=== PATIENT | male | born 1960 | race Caucasian/White ===

== ENCOUNTER 2017-06-19 17:38 | Inpatient (IN) | payer BC, OTHER ==
[~2017-06-19 17:38] MED LIST: ISOVUE-370 76%-LOCM 1 ML ONE
[2017-06-19 18:09] LABS: #Eosinphils 0.1 thou/uL (0.0-0.7); #Lymphocytes 2.7 thou/uL (1.20-3.40); #Monocytes 0.8 thou/uL (0.11-0.59); %Basophils 0.4 % (0.0-1.0); %Eosinophils 1.3 % (0.0-10.0); %Lymphocytes 25.3 % (21.0-51.0); %Monocytes 7.5 % (0.0-10.0); %Neutrophils 65.5 % (42.0-75.0); Hemoglobin 15.7 g/dL (14.0-18.0); Mean Corpuscular HGB CONC 36.3 g/dL (32.0-36.0); Mean Corpuscular Hemoglobin 32.9 pg (27.0-31.0); Mean Corpuscular Volume 90.7 fl (80.0-94.0); Mean Platelet Volume 8.4 fL (7.4-10.4); Platelet Count 218 thou/uL (130-400); RBC Distribution Width 12.3 % (11.5-14.5); Red Blood Cell (RBC) Count 4.77 mill/uL (4.70-6.10); White Blood Cell (WBC) Count 10.7 thou/uL (4.8-10.8)
[2017-06-19 18:16] LABS: PTT 24.8 SEC (22.9-36.1); Prothrombin Time 13.2 SEC (12.0-14.7)
[2017-06-19 18:23] LABS: ALT (SGPT) 41 U/L (8-55); AST (SGOT) 46 U/L (5-34); Albumin 4.3 g/dL (3.5-5.0); Alcohol Less than 10 mg/dL (Less than 10); Alkaline Phosphatase 55 U/L (40-150); Anion Gap 15 mmol/L (10-20); BUN (Urea Nitrogen) 17 mg/dL (8.4-25.7); Bilirubin, Total 0.8 mg/dL (0.2-1.2); Calc. Creatinine Clearance 0 mL/min (70-130); Calcium 9.1 mg/dL (7.8-10.44); Carbon Dioxide 21 mmol/L (22-29); Chloride 104 mmol/L (98-107); Estimated GFR-MDRD 78; Globulin 2.9 g/dL (2.4-3.5); Glucose 117 mg/dL (70-105); Lipase 45 U/L (8-78); Potassium 3.7 mmol/L (3.5-5.1); Protein, Total 7.2 g/dL (6.0-8.3); Sodium 136 mmol/L (136-145)
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
[2017-06-19] MEDS ORDERED: Adacel (T-DAP) 0.5 ML VIAL ONE (19:05)
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
[2017-06-19 20:48] LABS: Bilirubin Negative (Negative); Blood, Urine Small (Negative); Clarity CLEAR (Clear); Glucose, Urine (Dipstick) Negative (Negative); Leukocyte Negative (Negative); Nitrite Negative (Negative); Protein, Urine (Dipstick) Trace mg/dL (Neg-Trace); Specific Gravity, Urine 1.034 (1.002-1.036); Urobilinogen 0.2 mg/dL (0.2-1.0)
[2017-06-19 20:50] LABS: Bacteria/HPF None Seen HPF (None Seen); Hyaline Casts/LPF 4-6 HYALINE CAST LPF (0-3 Hyaline); Pathc Cast-AUWi Flag 0.81 (0-2.49); Squamous Epithelial 0-3 HPF (0-3); WBC/HPF 0-3 HPF (0-3)
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
[2017-06-19] MEDS ORDERED: Ondansetron HCl/PF 4 MG/2 ML Vial ONE (22:15)
[2017-06-19] MEDS ORDERED: Dextrose 50% Abboject 50 ML SYRINGE SLOW IVP PRN (22:58)
[2017-06-19] MEDS ORDERED: Dextrose 5% in Water 1,000 ML IV PRN (22:58)
[2017-06-19] MEDS ORDERED: hydrALAZINE 20 MG/ML VIAL SLOW IVP PRN (22:58)
[2017-06-19] MEDS ORDERED: Rib Fracture Protocol IV SCH (22:58)
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
[2017-06-19 23:26] LABS: Hemoglobin 13.9 g/dL (14.0-18.0)
[2017-06-19] MEDS: Sodium Bicarbonate 100 MEQ in Dextrose 5% in Water 1,000 ML IV SCH ×2 (23:51)
[2017-06-19] MEDS: Acetaminophen 1,000 MG in Premix Bag 1 BAG IVPB SCH (23:51)
[2017-06-19] MEDS: Ketorolac Tromethamine 30 MG/ML VIAL IVP SCH (23:51)
[2017-06-20 02:17] VITALS: BMI 28.8
[2017-06-20 04:44] LABS: #Lymphocytes 0.9 thou/uL (1.20-3.40); #Monocytes 0.6 thou/uL (0.11-0.59); #Neutrophils 7.8 thou/uL (1.40-6.50); %Basophils 0.2 % (0.0-1.0); %Eosinophils 0.3 % (0.0-10.0); %Lymphocytes 9.4 % (21.0-51.0); %Monocytes 6.1 % (0.0-10.0); %Neutrophils 84.1 % (42.0-75.0); Hemoglobin 12.7 g/dL (14.0-18.0); Mean Corpuscular HGB CONC 35.2 g/dL (32.0-36.0); Mean Corpuscular Hemoglobin 31.7 pg (27.0-31.0); Mean Corpuscular Volume 90.3 fl (80.0-94.0); Platelet Count 179 thou/uL (130-400); Red Blood Cell (RBC) Count 4.01 mill/uL (4.70-6.10); White Blood Cell (WBC) Count 9.2 thou/uL (4.8-10.8)
[2017-06-20 04:49] LABS: Anion Gap 12 mmol/L (10-20); BUN (Urea Nitrogen) 12 mg/dL (8.4-25.7); Calc. Creatinine Clearance 111 mL/min (70-130); Calcium 7.9 mg/dL (7.8-10.44); Carbon Dioxide 25 mmol/L (22-29); Chloride 102 mmol/L (98-107); Estimated GFR-MDRD 85; Glucose 189 mg/dL (70-105); Potassium 4.2 mmol/L (3.5-5.1); Sodium 135 mmol/L (136-145)
[2017-06-20] MEDS: Acetaminophen 1,000 MG in Premix Bag 1 BAG IVPB SCH (05:46)
[2017-06-20] MEDS: Ketorolac Tromethamine 30 MG/ML VIAL IVP SCH (05:46)
[2017-06-20 07:20] LABS: Magnesium 2.1 mg/dL (1.6-2.6); Phosphorus 3.2 mg/dL (2.3-4.7)
[2017-06-20] MEDS: Famotidine/PF 20 mg/2ml Vial SLOW IVP SCH ×2 (08:03→20:09)
[2017-06-20] MEDS: Sodium Bicarbonate 100 MEQ in Dextrose 5% in Water 1,000 ML IV SCH ×2 (08:03)
[2017-06-20] MEDS: Lactated Ringer's 1,000 ML IV SCH ×2 (08:19→16:21)
[2017-06-20] MEDS ORDERED: Bisacodyl 10 MG SUPP PR SCH (09:00)
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
[2017-06-20] MEDS ORDERED: HYDROcodone/Acetaminophen 10/325 mg Tablet PO PRN (10:37)
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
[2017-06-20] MEDS ORDERED: traMADol HCl 50 MG TAB PO SCH (16:15)
[2017-06-20] MEDS: traMADol HCl 50 MG TAB PO PRN (20:08)
[2017-06-20] MEDS ORDERED: Enoxaparin Sodium 30 MG/0.3 ML SYRINGE SC SCH (21:00)
[2017-06-21] MEDS ORDERED: Acetaminophen 1,000 MG in Premix Bag 1 BAG IVPB PRN (00:01)
[2017-06-21] MEDS ORDERED: CEFAZOLIN/Water 2 GM/20 ML SYRINGE SLOW IVP SCH ×2 (00:01→11:00)
[2017-06-21] MEDS: Lactated Ringer's 1,000 ML IV SCH ×3 (01:37→19:54)
[2017-06-21] MEDS: Ondansetron HCl/PF 4 MG/2 ML Vial IVP PRN (04:41)
[2017-06-21] MEDS ORDERED: Midazolam HCl 2 mg/2 ml Vial ONE (07:33)
[2017-06-21] MEDS ORDERED: Fentanyl 250 MCG/5 ML VIAL ONE (07:33)
[2017-06-21] MEDS ORDERED: CEFAZOLIN/Water 2 GM/20 ML SYRINGE ONE (07:38)
[2017-06-21] MEDS ORDERED: Bupivacaine 0.5% 10 ML VIAL ONE (08:34)
[2017-06-21] MEDS ORDERED: Ondansetron HCl/PF 4 MG/2 ML Vial IVP PRN (09:27)
[2017-06-21] MEDS ORDERED: Promethazine HCl 25 MG/ML VIAL SLOW IVP PRN (09:27)
[2017-06-21] MEDS ORDERED: Promethazine HCl 25 MG/ML VIAL IM PRN (09:27)
[2017-06-21] MEDS: Famotidine/PF 20 mg/2ml Vial SLOW IVP SCH ×2 (10:48→21:43)
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
--- NOTE | 2017-06-21 11:08 | RAD ---
RIGHT ANKEL 2 VIEWS: Date: 06/21/17 PROVIDED CLINICAL HISTORY: Fracture status post open reduction and internal fixation. FINDINGS: Comparison made with the study dated 06/21/17. Interval cannulated partially threaded lag screw fixation of previously described medial malleolar fr acture. Spot fluoroscopic image of the upper foreleg demonstrates no evidence for proximal fibular fr acture. IMPRESSION: As above. POS: EVANGELINA
--- NOTE | 2017-06-21 11:09 | RAD ---
LEFT ANKLE 2 VIEWS: Date: 06/21/17 PROVIDED CLINICAL HISTORY: Open reduction and internal fixation. FINDINGS: Comparison with 06/19/17. Interval cannulated partially threaded lag screw fixation of previously described medial malleolar fr acture. Spot fluoroscopic image of the proximal foreleg demonstrates no evidence for proximal fibular fracture. IMPRESSION: As above. POS: EVANGELINA
[2017-06-21] MEDS: traMADol HCl 50 MG TAB PO PRN ×2 (14:29→21:44)
[2017-06-21] MEDS: Acetaminophen 500 MG TAB PO PRN (14:29)
[2017-06-21] MEDS ORDERED: Amlodipine 5 mg/Benazepril 10 mg CAP PO SCH (14:45)
[2017-06-21] MEDS: Bisacodyl 5 MG TAB PO SCH (16:00)
[2017-06-21] MEDS: CEFAZOLIN/Water 2 GM/20 ML SYRINGE SLOW IVP SCH (16:37)
[2017-06-21] MEDS ORDERED: Propofol 200 MG/20 ML VIAL ONE (16:55)
[2017-06-21] MEDS ORDERED: Ondansetron HCl/PF 4 MG/2 ML Vial ONE (16:55)
[2017-06-21] MEDS ORDERED: Dexamethasone 20 MG/5 ML VIAL ONE (16:55)
[2017-06-21] MEDS ORDERED: diphenhydrAMINE 50 MG/ML VIAL ONE (16:55)
[2017-06-21] MEDS ORDERED: Lidocaine 1% PF 5 ML VIAL ONE (16:55)
[2017-06-21] MEDS ORDERED: diphenhydrAMINE 25 MG CAP PO PRN (17:09)
[2017-06-21] MEDS ORDERED: traMADol HCl 50 MG TAB PO SCH (17:15)
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
[2017-06-21] MEDS: Fluticasone Propionate Nasal Spray 16 gm Bottle NASAL SCH (19:54)
[2017-06-21] MEDS: traMADol HCl 50 MG TAB PO SCH (21:43)
[2017-06-21] MEDS: Enoxaparin Sodium 30 MG/0.3 ML SYRINGE SC SCH (21:44)
[2017-06-21] MEDS: Atorvastatin Calcium 20 MG TAB PO SCH (21:44)
[2017-06-22] MEDS: Acetaminophen 500 MG TAB PO PRN ×2 (00:40→07:23)
[2017-06-22] MEDS: CEFAZOLIN/Water 2 GM/20 ML SYRINGE SLOW IVP SCH (00:40)
[2017-06-22] MEDS: Lactated Ringer's 1,000 ML IV SCH ×4 (00:41→21:43)
[2017-06-22] MEDS: traMADol HCl 50 MG TAB PO SCH ×4 (03:55→21:33)
[2017-06-22] MEDS: traMADol HCl 50 MG TAB PO PRN (07:23)
[2017-06-22] MEDS: Amlodipine 5 mg/Benazepril 10 mg CAP PO SCH (08:20)
[2017-06-22] MEDS: Enoxaparin Sodium 30 MG/0.3 ML SYRINGE SC SCH ×2 (08:21→21:32)
[2017-06-22] MEDS: Famotidine/PF 20 mg/2ml Vial SLOW IVP SCH ×2 (08:21→21:32)
[2017-06-22] MEDS: Bisacodyl 5 MG TAB PO SCH (08:21)
[2017-06-22] MEDS: Fluticasone Propionate Nasal Spray 16 gm Bottle NASAL SCH (08:23)
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
[2017-06-22] MEDS: Atorvastatin Calcium 20 MG TAB PO SCH (21:32)
[2017-06-23] MEDS: traMADol HCl 50 MG TAB PO SCH ×4 (02:35→20:49)
[2017-06-23] MEDS: Bisacodyl 5 MG TAB PO SCH (08:17)
[2017-06-23] MEDS: Amlodipine 5 mg/Benazepril 10 mg CAP PO SCH (08:17)
[2017-06-23] MEDS: Enoxaparin Sodium 30 MG/0.3 ML SYRINGE SC SCH ×2 (08:17→20:49)
[2017-06-23] MEDS: Lactated Ringer's 1,000 ML IV SCH (08:19)
[2017-06-23] MEDS: Famotidine 20 MG TAB PO SCH ×2 (08:22→20:49)
[2017-06-23] MEDS ORDERED: Oxazepam 10 MG CAP PO SCH (08:30)
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
[2017-06-23] MEDS: Ondansetron HCl/PF 4 MG/2 ML Vial IVP PRN (14:12)
[2017-06-23] MEDS: Senokot S 8.6-50 MG TAB PO SCH ×2 (16:15→20:49)
[2017-06-23] MEDS: Polyethylene Glycol 3350 17 GM Packet PO SCH (16:16)
[2017-06-23] MEDS: Fluticasone Propionate Nasal Spray 16 gm Bottle NASAL SCH (18:22)
[2017-06-23] MEDS: Atorvastatin Calcium 20 MG TAB PO SCH (20:49)
[2017-06-24] MEDS: traMADol HCl 50 MG TAB PO PRN (00:44)
[2017-06-24] MEDS: traMADol HCl 50 MG TAB PO SCH ×3 (02:33→14:45)
[2017-06-24] MEDS: Polyethylene Glycol 3350 17 GM Packet PO SCH (08:32)
[2017-06-24] MEDS: Amlodipine 5 mg/Benazepril 10 mg CAP PO SCH (08:32)
[2017-06-24] MEDS: Senokot S 8.6-50 MG TAB PO SCH (08:32)
[2017-06-24] MEDS: Enoxaparin Sodium 30 MG/0.3 ML SYRINGE SC SCH (08:32)
[2017-06-24] MEDS: Bisacodyl 5 MG TAB PO SCH (08:33)
[2017-06-24] MEDS: Famotidine 20 MG TAB PO SCH (08:34)
[2017-06-24] MEDS: Fluticasone Propionate Nasal Spray 16 gm Bottle NASAL SCH (08:38)
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
[2017-06-24] MEDS: Ondansetron HCl/PF 4 MG/2 ML Vial IVP PRN (14:45)
[2017-06-24 15:45] VITALS: BP 121/86; TEMP 97.5
--- NOTE | 2017-06-28 12:10 | EKG ---
Test Reason : Blood Pressure : / mmHG Vent. Rate : 102 BPM Atrial Rate : 102 BPM P-R Int : 160 ms QRS Dur : 090 ms QT Int : 346 ms P-R-T Axes : 014 -11 -08 degrees QTc Int : 450 ms Sinus tachycardia Minimal voltage criteria for LVH, may be normal variant Left axis deviation Borderline ECG Confirmed by JESSE PIMENTEL, JAGDEEP Yan ([id number]), sports editor DEONDRE ESTRADA ([id number]) on 06/28/2017 12:10:07 PM Referred By: Confirmed By:JAGDEEP MOLINA MD
== END 2017-06-24 17:30 | DRG 958 ==
LOC: ERS 17:38 → IMCU/EMU 22:30 → SURG A 06-20 18:02
PROVIDERS: ADMIT Surgery; ATTEND Surgery
PROC: 0QSH04Z Reposition Left Tibia with Internal Fixation Device, Open Approach (ICD-10-PCS; principal; 2017-06-21)
PROC: 0QSG04Z Reposition Right Tibia with Internal Fixation Device, Open Approach (ICD-10-PCS; 2017-06-21)
DX: S22.21XA Fracture of manubrium, initial encounter for closed fracture (principal); S37.812A Contusion of adrenal gland, initial encounter; S27.892A Contusion of other specified intrathoracic organs, initial encounter; S32.029A Unspecified fracture of second lumbar vertebra, initial encounter for closed fracture; S22.42XA Multiple fractures of ribs, left side, initial encounter for closed fracture; S32.039A Unspecified fracture of third lumbar vertebra, initial encounter for closed fracture; S82.51XA Displaced fracture of medial malleolus of right tibia, initial encounter for closed fracture; S82.52XA Displaced fracture of medial malleolus of left tibia, initial encounter for closed fracture; V43.52XA Car driver injured in collision with other type car in traffic accident, initial encounter; Y92.410 Unspecified street and highway as the place of occurrence of the external cause; S06.0X0A Concussion without loss of consciousness, initial encounter; I10 Essential (primary) hypertension
CPT/HCPCS: 29515; 36415; 70450; 70498; 71045; 71260; 72125; 74177; 76001; 80048; 80053; 80307; 81003; 81015; 83690; 83735; 84100; 85025; 85610; 85730; 86850; 86900; 86901; 90471; 90715; 93005; 94640; 94760; 96360; 96361; 96374; 99292; C1713; G0390; G8978-GP-CK; G8979-GP-CI; G8987-GO-CJ; G8988-GO-CI; J0131; J1100; J1200; J1650; J1885; J2001; J2250; J2270; J2405; J2704; J3010; J3490; J7070; J7620; S0028